=== PATIENT | female | born 1980 | race Asian ===

== ENCOUNTER 2019-11-13 13:23 | Outpatient (CLI) | payer BC | END 2019-11-13 23:59 | disposition home or self-care (01) | LOC: XR 13:23 | PROVIDERS: ATTEND Family Medicine | DX: R05 Cough (principal) | CPT/HCPCS: 71046 ==

== ENCOUNTER 2023-01-18 10:32 | Outpatient (CLI) | payer BC | END 2023-01-18 23:59 | disposition home or self-care (01) | LOC: WOU 10:32 | PROVIDERS: ATTEND Podiatrist Foot & Ankle Surgery | DX: T81.31XD Disruption of external operation (surgical) wound, not elsewhere classified, subsequent encounter (principal); S92.351S Displaced fracture of fifth metatarsal bone, right foot, sequela; V49.9XXS Car occupant (driver) (passenger) injured in unspecified traffic accident, sequela; M79.671 Pain in right foot | CPT/HCPCS: 29515; 73630; A6197 ==